=== PATIENT | male | born 1960 ===

== ENCOUNTER 2017-09-03 04:21 | Outpatient (CLI) | payer BC | END 2017-09-03 23:59 | disposition home or self-care (01) | LOC: DIABETIC 04:21 | PROVIDERS: ATTEND Family Medicine | DX: E11.65 Type 2 diabetes mellitus with hyperglycemia (principal) | CPT/HCPCS: G0109 ==

== ENCOUNTER 2017-09-24 04:15 | Outpatient (CLI) | payer BC | END 2017-09-24 23:59 | disposition home or self-care (01) | LOC: DIABETIC 04:15 | PROVIDERS: ATTEND Family Medicine | DX: E11.65 Type 2 diabetes mellitus with hyperglycemia (principal) | CPT/HCPCS: G0108 ==

== ENCOUNTER 2017-11-12 03:43 | Outpatient (CLI) | payer BC | END 2017-11-12 23:59 | disposition home or self-care (01) | LOC: DIABETIC 03:43 | PROVIDERS: ATTEND Family Medicine | DX: E11.65 Type 2 diabetes mellitus with hyperglycemia (principal) | CPT/HCPCS: G0109 ==